=== PATIENT | female | born 1960 | race Caucasian/White ===

== ENCOUNTER → 2023-07-02 10:10 | Outpatient (REF) | payer OTHER, SELFPAY | LOC: HWRAD 10:10 | PROVIDERS: ATTENDING PHYSICIAN Internal Medicine Rheumatology; FAMILY PHYSICIAN Family Medicine | DX: M81.0 Age-related osteoporosis without current pathological fracture (principal) | CPT/HCPCS: 77080 ==

== ENCOUNTER → 2024-01-28 13:51 | Outpatient (REF) | payer OTHER, SELFPAY | LOC: WDC 13:51 | PROVIDERS: ATTENDING PHYSICIAN Family Medicine | DX: Z12.31 Encounter for screening mammogram for malignant neoplasm of breast (principal) | CPT/HCPCS: 77063; 77067 ==

== ENCOUNTER 2024-02-17 10:00 | Emergency (ER) | payer OTHER, SELFPAY ==
--- NOTE | 2024-02-17 10:09 | ED.GENMED ---
ED Provider Triage
<Mitra England PA-C - Last Filed: 02/17/24 16:45>
-
Patient seen by provider in Triage?: Seen in Triage
Attestation: A medical screening examination has been initiated by a qualified medical provider. Based on the assessment performed at this time, it has been determined that an emergent medical condition may exist and the patient has been informed
that further medical evaluation and possible additional diagnostic testing may be needed.
HPI: 63yoF here with constipation. No BM in 6 days. Tried laxatives and fleets enema without relief. Went to urgent care yesterday and prescribed mag citrate without relief. C/o abdominal bloating. No vomiting or urinary retention.
GENERAL: Alert , in no apparent distress
EYE: No visual abnormalities.
NECK: Trachea midline
ENT: No visible abnormalities.
LUNGS: No acute respiratory distress
NEUROLOGICAL: Alert and oriented
SKIN: Skin intact. No visible changes.
MUSCULOSKELETAL: Moving extremities normally
PSYCH: Normal and appropriate interaction.
This is a medical evaluation conducted in person to initiate diagnostic evaluation and provide initial therapeutics. Please see further documentation by the treating clinician.
History of Present Illness
<Mitra England PA-C - Last Filed: 02/17/24 16:45>
General
Chief Complaint: Bowel Problem
Time Seen by Provider: 02/17/24 11:16
<Rizwan Silver DO - Last Filed: 02/17/24 16:00>
General
Source: patient and family
Exam Limitations: none
Nursing documentation reviewed up to this point in time: agreed with
History of Present Illness
History of Present Illness:
63-year-old female presents emergency department complaining of constipation, and abdominal discomfort for the past 6 days. She has taken laxatives and fleets enema. Nothing has worked.
Past History
<Mitra England PA-C - Last Filed: 02/17/24 16:45>
Past History
ED Past Medical History: Hypothyroidism
ED Past Surgical History: Other
Social History
Tobacco: Non-smoker
Personal:
Living: with family
Review of Systems
<Rizwan Silver DO - Last Filed: 02/17/24 16:00>
Review of Systems
Allergies reviewed?: Yes
All Other Systems: Not applicable
Constitutional: Reports no symptoms
EENT: Reports no symptoms
Respiratory: Reports no symptoms
Cardiac: Reports no symptoms
ABD/GI: Reports abdominal pain and constipated
: Reports no symptoms
Musculoskeletal: Reports no symptoms
Skin: Reports no symptoms
Neurological: Reports no symptoms
Endocrine: Reports no symptoms
Hematologic/Lymphatic: Reports no symptoms
Psychiatric: Reports no symptoms
Phy Exam
<Rizwan Sliver DO - Last Filed: 02/17/24 16:00>
Physical Exam
Physical Exam:
Physical Exam
General: no apparent distress, not acutely ill
Neck: supple. no meningeal signs. normal posterior pharynx
Heart: s1/s2 regular rate and rhythm, no murmur. equal radial
pulses.
HEENT: Pupils equal round reactive to light, EOMI
Lungs: no acute respiratory distress. clear bilaterally
Abdomen: normal bowel sounds. Mild diffuse tenderness. no CVAT. Rectal exam: No impaction or blood
Neuro: alert and oriented. no focal neurological deficits cranial nerves II through XII intact
Skin: no rash
Psychiatric: well kept. interactive and cooperative
Extremities: no edema. no calf tenderness. negative homans. good distal pulses
Course
<Mitra England PA-C - Last Filed: 02/17/24 16:45>
Orders/Labs/Results
Orders:
Orders
02/17/24 11:28
CBC/With Diff [Complete Blood Count/With Diff] Urgent
CMP [Comprehensive Metabolic Panel] Urgent
Lipase Urgent
Comment: ADD ON
02/17/24 11:32
Iohexol [Omnipaque] See Protocol PO NOW STA
02/17/24 11:34
CT Abd/pel W Iv And Oral Contr Urgent
Comment:
Reason For Exam: diffuse abdominal pain, constipation
02/17/24 12:53
Add On- LAB Urgent
Tests Added?: lipase
02/17/24 15:37
Enema- Treatment ONCE
Type: Milk of Molasses
Abnormal Lab Results
02/17/24
11:28
RBC 4.12 L 10^6/uL
(4.20-5.40)
Hct 36.2 L %
(37.0-47.0)
Monocytes % 9.4 H %
(1.7-9.3)
Glucose 100 H mg/dl
(70-99)
02/17/24 11:28
02/17/24 11:28
Vital Signs
Initial and Last Documented VS:
Initial Vital Signs
Temp Pulse Resp BP Pulse Ox
99.1 F 97 16 152/93 98
02/17/24 10:10 02/17/24 10:10 02/17/24 10:10 02/17/24 10:10 02/17/24 10:10
Last Documented Vital Signs
Temp Pulse Resp BP Pulse Ox
99.1 F 17 16 139/99 97
02/17/24 10:10 02/17/24 12:00 02/17/24 10:10 02/17/24 12:00 02/17/24 12:30
Samlt;Rizwan Silver, DO - Last Filed: 02/17/24 16:00>
Orders/Labs/Results
Orders:
Orders
02/17/24 11:28
CBC/With Diff [Complete Blood Count/With Diff] Urgent
CMP [Comprehensive Metabolic Panel] Urgent
Lipase Urgent
Comment: ADD ON
02/17/24 11:32
Iohexol [Omnipaque] See Protocol PO NOW STA
02/17/24 11:34
CT Abd/pel W Iv And Oral Contr Urgent
Comment:
Reason For Exam: diffuse abdominal pain, constipation
02/17/24 12:53
Add On- LAB Urgent
Tests Added?: lipase
02/17/24 15:37
Enema- Treatment ONCE
Type: Milk of Molasses
Abnormal Lab Results
02/17/24
11:28
RBC 4.12 L 10^6/uL
(4.20-5.40)
Hct 36.2 L %
(37.0-47.0)
Monocytes % 9.4 H %
(1.7-9.3)
Glucose 100 H mg/dl
(70-99)
02/17/24 11:28
02/17/24 11:28
Vital Signs
Initial and Last Documented VS:
Initial Vital Signs
Temp Pulse Resp BP Pulse Ox
99.1 F 97 16 152/93 98
02/17/24 10:10 02/17/24 10:10 02/17/24 10:10 02/17/24 10:10 02/17/24 10:10
Last Documented Vital Signs
Temp Pulse Resp BP Pulse Ox
99.1 F 17 16 139/99 97
02/17/24 10:10 02/17/24 12:00 02/17/24 10:10 02/17/24 12:00 02/17/24 12:30
<Rizwan Silver, DO - Last Filed: 02/17/24 16:00>
MDM/Problems Addressed
Differential Diagnosis Includes:
Bowel obstruction
MDM/Problems Addressed:
63-year-old female with constipation, no signs of bowel obstruction. Stable for discharge after enema.
Chronic conditions affecting care: Neurological disorder (Parkinson's)
<Rizwan Silver DO - Last Filed: 02/17/24 16:00>
*Radiology
Radiology exam reviewed: radiology read reviewed (CT abdomen pelvis shows constipation)
*Pulse Oximetry
Patient hypoxic: no
*Critical Care Note
Total Time (30-74mins, 75-104mins- exclusive of procedures): Not Applicable
<Rizwan Silver DO - Last Filed: 02/17/24 16:00>
Patient Management
Social determinants of health affecting care: Living situation
Escalation/DeEscalation of care consider admission/obs:
Admit not indicated
ED Attending Note
<Mitra England PA-C - Last Filed: 02/17/24 16:45>
-
Portions of this chart may have been created with voice recognition software.� Occasional wrong word or��sound alike� substitutions may have occurred due to the inherent limitations of voice recognition software.
Discharge Plan
Departure
Patient Disposition: Home (Routine Discharge)
Date of Disposition: 02/17/24
Time of Disposition: 16:01
Patient with high blood pressure during this ER visit?: Yes
Condition: Good
Discharge Problem:
Constipation
Instructions: Constipation, Adult (DC), BLOOD PRESSURE
Prescriptions:
No Action
Synthroid
0.075 mg PO DAILY
alprazolam 0.5 MG tablet
0.5 mg PO BID
sertraline 50 MG tablet
50 mg PO DAILY
ondansetron 4 MG tablet,disintegrating
4 mg PO TIDPRN PRN (Reason: nausea) Qty: 14 1RF
Referrals:
Padmini,Jamarcus J., DO [Family Provider] - Call in 1-3 days for appt
Interventions
Interventions:
*Risk Screen - Suicide Last Done: 02/17/24 10:10
*General Assessment Last Done: 02/17/24 11:30
*Neglect/Abuse Screening Last Done: 02/17/24 10:10
ED- Fall Risk Assessment Last Done: 02/17/24 11:30
AD-Vjlmgu-Fefikkrwwj Assessment Last Done: 02/17/24 11:30
Discharge Date and Time
Print Language: MALIAN
[2024-02-17 10:10] VITALS: BP 152/93
[2024-02-17 11:17] VITALS: BP 155/99
[2024-02-17 11:30] VITALS: BMI 20.3
[2024-02-17 11:36] LABS: % Basophils 0.6 % (0-2); % Eosinophils 0.4 % (0-6); % Immature Granulocytes 0.2 % (0-0.5); % Lymphocytes 27.7 % (20.5-51.1); % Monocytes 9.4 % (1.7-9.3); % Neutrophils 61.7 % (42.2-75.2); Absolute Lymphocytes 1.4 10^3/uL (1.2-3.4); Absolute Monocytes 0.5 10^3/uL (0.1-0.6); Absolute Neutrophils 3.1 10^3/uL (1.4-6.5); Hematocrit 36.2 % (37.0-47.0); Hemoglobin 12.3 g/dL (12.0-16.0); Mean Corpuscular Hgb 29.9 pg (27.0-31.0); Mean Corpuscular Volume 87.9 fL (81.0-99.0); Nucleated Red Blood Cells % 0 %; Platelet Count 252 10^3/uL (130-400); Red Blood Cell Count 4.12 10^6/uL (4.20-5.40); Red Cell Dist. Width 11.8 % (11.5-14.5)
[2024-02-17] MEDS: OMNIPAQUE 50 ML PO (11:39)
[2024-02-17 11:48] LABS: ALT (SGPT) < 10 U/L (0-35); AST (SGOT) 29 U/L (14-36); Albumin 4.9 g/dl (3.5-5.0); Alkaline Phosphatase 57 U/L (38-126); Blood Urea Nitrogen 13 mg/dl (7-17); Calcium 9.8 mg/dl (8.4-10.2); Carbon Dioxide 30 mmol/L (22-30); Chloride 98 mmol/L (98-107); Glucose 100 mg/dl (70-99); Potassium 4.3 mmol/L (3.5-5.1); Sodium 139 mmol/L (135-145); Total Bilirubin 0.9 mg/dl (0.2-1.3); Total Protein 7.4 g/dl (6.3-8.2); eGFR > 60.00
[2024-02-17 12:00] VITALS: BP 139/99
[2024-02-17 13:45] LABS: Lipase 186 U/L (23-300)
[2024-02-17 17:55] VITALS: BP 130/88
== END 2024-02-17 17:56 | disposition home or self-care (01) ==
LOC: EMR 10:00
PROVIDERS: EMERGENCY PHYSICIAN Emergency Medicine; FAMILY PHYSICIAN Family Medicine
DX: K59.00 Constipation, unspecified (principal); E03.9 Hypothyroidism, unspecified; G20.A1 Parkinson's disease without dyskinesia, without mention of fluctuations
CPT/HCPCS: 99284; 74177; 80053; 83690; 85025; Q9967

== ENCOUNTER 2024-02-26 10:52 | Emergency (ER) | payer OTHER, SELFPAY ==
[2024-02-26 10:59] VITALS: BP 106/81
--- NOTE | 2024-02-26 12:23 | ED.GENMED ---
History of Present Illness
General
Chief Complaint: Bowel Problem
Source: patient
Exam Limitations: none
Time Seen by Provider: 02/26/24 12:00
History of Present Illness
History of Present Illness:
63-year-old female with history of Parkinson's presents with increased abdominal discomfort and distention as well as constipation. She was here 9 days ago for constipation had a CT scan of her abdomen and had an enema with some relief at that
time. She been trying enemas and been on a bowel regimen since then but has not been moving much of her stool. She denies a fever or vomiting. She notes new her discomfort to the right side of her abdomen. She has had C-sections but no prior
abdominal surgical history otherwise. No fever. No other complaints
Past History
Past History
ED Past Medical History: Hypothyroidism
ED Past Surgical History: Other
Social History
Tobacco: Non-smoker
Personal:
Living: with family
Phy Exam
Physical Exam
Physical Exam:
General: Well-appearing female no acute respiratory distress
HEENT: Normocephalic atraumatic
Heart: Regular rate and rhythm
Lungs: Clear no wheeze
Abdomen: Somewhat firm tender with guarding to the right lower abdomen. No rebound tenderness bowel sounds heard
Extremities: No cyanosis
Skin warm no rash
Course
Orders/Labs/Results
Orders:
Orders
02/26/24 12:23
CT Abd/pel W Iv And Oral Contr Urgent
Comment:
Reason For Exam: RLQ pain
Iohexol [Omnipaque] See Protocol PO NOW STA
02/26/24 12:56
Complete Blood Count/With Diff Urgent
Comprehensive Metabolic Panel Urgent
Lactic Acid Q4H
Comment: CANCEL 2nd LACTIC ACID IF 1st LACTIC ACID IS LESS THAN 2
TSH Reflex To Free T4 Urgent
Comment: TSH REFLEX ADDEDON BY FLOOR 1PM 02-26-24
02/26/24 13:07
Add On- LAB Urgent
Tests Added?: TSH reflex free T4
02/26/24 16:24
Enema- Treatment ONCE
Type: Milk of Molasses
Abnormal Lab Results
02/26/24
12:56
Albumin 5.2 H g/dl
(3.5-5.0)
02/26/24 12:56
02/26/24 12:56
Vital Signs
Initial and Last Documented VS:
Initial Vital Signs
Temp Pulse Resp BP Pulse Ox
98.0 F 100 16 106/81 98
02/26/24 10:59 02/26/24 10:59 02/26/24 10:59 02/26/24 10:59 02/26/24 10:59
Last Documented Vital Signs
Temp Pulse Resp BP Pulse Ox
98.0 F 113 14 123/85 97
02/26/24 10:59 02/26/24 16:30 02/26/24 16:30 02/26/24 16:30 02/26/24 16:15
MDM/Problems Addressed
Differential Diagnosis Includes:
Patient with increased abdominal discomfort and persistent constipation. She has been on MiraLAX and a bowel regimen at home. She received an enema here 9 days ago.
Concern for amount of tenderness on exam. Given the tenderness will lean towards repeating CT with oral and IV contrast to evaluate for obstruction versus sterile coral colitis versus appendicitis given the right lower tenderness
Will check labs.
*Critical Care Note
Total Time (30-74mins, 75-104mins- exclusive of procedures): Not Applicable
Update Note
Update Note:
CT shows moderate amount of stool burden throughout the colon slightly increased from prior imaging study. No sign of colitis or obstruction. Labs reviewed without significant finding. Will provide another milk of molasses enema here and consider
use of lactulose at home for her continued constipation.
ED Attending Note
-
Portions of this chart may have been created with voice recognition software.� Occasional wrong word or��sound alike� substitutions may have occurred due to the inherent limitations of voice recognition software.
Discharge Plan
Departure
Patient Disposition: Home (Routine Discharge)
Date of Disposition: 02/26/24
Time of Disposition: 17:27
Patient with high blood pressure during this ER visit?: No
Discharge Problem:
Constipation
Instructions: Constipation, Adult (DC)
Prescriptions:
New
lactulose 20 gram packet
20 g PO BID Qty: 30 0RF
No Action
Synthroid
0.075 mg PO DAILY
alprazolam 0.5 MG tablet
0.5 mg PO BID
sertraline 50 MG tablet
50 mg PO DAILY
ondansetron 4 MG tablet,disintegrating
4 mg PO TIDPRN PRN (Reason: nausea) Qty: 14 1RF
Referrals:
Jamarcus Washington, DO [Family Provider] -
Activity Restrictions/Additional Instructions:
Continue with MiraLAX and add on lactulose. Drink plenty of fluids. Follow-up with GI. Return if needed otherwise
Interventions
Interventions:
*Risk Screen - Suicide Last Done: 02/26/24 10:59
*General Assessment Last Done: 02/26/24 12:49
*Neglect/Abuse Screening Last Done: 02/26/24 10:59
ED- Fall Risk Assessment Last Done: 02/26/24 12:49
*ED COVID-19 Vaccine History Last Done: 02/26/24 12:49
*Nursing Disposition Last Done: 02/26/24 17:38
RI-Tlaoub-Yipzrxmuob Assessment Last Done: 02/26/24 12:49
Discharge Date and Time
Discharge Date/Time: 02/26/24 17:40
Print Language: MAORI
[2024-02-26] MEDS: OMNIPAQUE 50 ML PO (12:57)
[2024-02-26 12:58] VITALS: BP 167/100
[2024-02-26 13:00] VITALS: BP 159/98
[2024-02-26 13:05] LABS: % Basophils 0.6 % (0-2); % Eosinophils 0.6 % (0-6); % Immature Granulocytes 0.2 % (0-0.5); % Lymphocytes 30.5 % (20.5-51.1); % Monocytes 9.2 % (1.7-9.3); % Neutrophils 58.9 % (42.2-75.2); Absolute Lymphocytes 1.6 10^3/uL (1.2-3.4); Absolute Monocytes 0.5 10^3/uL (0.1-0.6); Absolute Neutrophils 3.1 10^3/uL (1.4-6.5); Hematocrit 37.2 % (37.0-47.0); Hemoglobin 12.6 g/dL (12.0-16.0); Mean Corp Hgb Conc. 33.9 g/dL (33.0-37.0); Mean Corpuscular Hgb 29.7 pg (27.0-31.0); Mean Corpuscular Volume 87.7 fL (81.0-99.0); Mean Platelet Volume 8.8 fL (7.4-10.4); Nucleated Red Blood Cells % 0 %; Platelet Count 291 10^3/uL (130-400); Red Blood Cell Count 4.24 10^6/uL (4.20-5.40); Red Cell Dist. Width 11.7 % (11.5-14.5); White Blood Cell Count 5.2 10^3/uL (4.8-10.8)
[2024-02-26 13:17] LABS: Lactic Acid 0.9 mmol/L (0.7-2.0)
[2024-02-26 13:18] LABS: ALT (SGPT) 10 U/L (0-35); AST (SGOT) 23 U/L (14-36); Albumin 5.2 g/dl (3.5-5.0); Alkaline Phosphatase 42 U/L (38-126); Blood Urea Nitrogen 14 mg/dl (7-17); Calcium 9.9 mg/dl (8.4-10.2); Carbon Dioxide 27 mmol/L (22-30); Chloride 99 mmol/L (98-107); Estimated Creatinine Clearance 73 ml/min; Glucose 86 mg/dl (70-99); Sodium 139 mmol/L (135-145); Total Protein 7.7 g/dl (6.3-8.2); eGFR > 60.00
[2024-02-26 13:35] LABS: Potassium 4.2 mmol/L (3.5-5.1)
[2024-02-26 14:14] LABS: TSH Reflex To Free T4 2.33 uIU/ml (0.47-4.68)
[2024-02-26 16:30] VITALS: BP 123/85
== END 2024-02-26 17:40 | disposition home or self-care (01) ==
LOC: EMR 10:52
PROVIDERS: Physician Assistant; EMERGENCY PHYSICIAN Emergency Medicine; FAMILY PHYSICIAN Family Medicine
DX: K59.00 Constipation, unspecified (principal); R10.9 Unspecified abdominal pain; G20.A1 Parkinson's disease without dyskinesia, without mention of fluctuations; E03.9 Hypothyroidism, unspecified
CPT/HCPCS: 99284; 74177; 80053; 83605; 84443; 85025; Q9967

== ENCOUNTER 2024-10-14 06:19 | Day surgery (SDC) | payer OTHER, SELFPAY | END 2024-10-14 14:27 | disposition home or self-care (01) | LOC: GI 06:19 | PROVIDERS: ATTENDING PHYSICIAN Specialist | DX: Z12.11 Encounter for screening for malignant neoplasm of colon (principal); K59.00 Constipation, unspecified; K64.8 Other hemorrhoids; D12.3 Benign neoplasm of transverse colon | CPT/HCPCS: 45380; 88305 ==

== ENCOUNTER → 2025-02-01 14:20 | Outpatient (REF) | payer OTHER, SELFPAY | LOC: WDC 14:20 | PROVIDERS: ATTENDING PHYSICIAN Family Medicine | DX: Z12.31 Encounter for screening mammogram for malignant neoplasm of breast (principal) | CPT/HCPCS: 77063; 77067 ==